=== PATIENT | male | born 1995 | race Caucasian/White ===

== ENCOUNTER 2018-05-12 23:41 | Emergency (ER) | payer MEDICAID ==
[~2018-05-12] VITALS: Ht 175.3 cm; Wt 88.6 kg
[2018-05-13] MEDS ORDERED: SODIUM CHLORIDE 0.9% 1,000 ML IV ONE (00:15)
[2018-05-13] MEDS ORDERED: EPINEPHrine 1:1,000 [1 MG/ML] AMP SQ ONE (00:15)
[2018-05-13] MEDS ORDERED: FAMOTIDINE 10 MG/ML 2 ML VIAL IVP ONE (00:15)
[2018-05-13] MEDS ORDERED: ALBUTEROL SULFATE 2.5 MG/0.5 ML NEB SOLUTION NEB ONE (00:15)
[2018-05-13] MEDS ORDERED: DiphenhydrAMINE HCL 50 MG/ML VIAL IVP ONE (00:15)
[2018-05-13] MEDS ORDERED: MethylPREDNISolone SOD SUCC 125 MG/2 ML VIAL IVP ONE (00:15)
[2018-05-13] MEDS ORDERED: 0.9% SODIUM CHLORIDE 5 ML NEB SOLUTION NEB ONE (00:16)
[2018-05-13 01:40] VITALS: BP 122/84
== END 2018-05-13 01:55 | disposition home or self-care (01) ==
LOC: EMS 23:41
DX: T78.40XA Allergy, unspecified, initial encounter (principal); R06.2 Wheezing; H57.89 Other specified disorders of eye and adnexa; X58.XXXA Exposure to other specified factors, initial encounter
CPT/HCPCS: 94640; 96372; 96374; 96375; 99283; J0171; J1200; J2930; J3490; J7030

== ENCOUNTER 2023-08-27 21:03 | Emergency (ER) | payer OTHER ==
[~2023-08-27] VITALS: Ht 180.3 cm; Wt 101.8 kg
[2023-08-27 21:21] VITALS: BP 108/47; PULSE 75; RESP 16; TEMP 98
[2023-08-28] MEDS ORDERED: METH-812 PO (01:12)
[2023-08-28] MEDS ORDERED: IBUP-1493 PO (01:12)
[2023-08-28] MEDS: METHOCARBAMOL 500 MG TABLET PO ONE (01:15)
[2023-08-28] MEDS ORDERED: KETOROLAC TROMETHAMINE 30 MG/ML VIAL IM ONE (01:15)
[2023-08-28] MEDS: KETOROLAC TROMETHAMINE 60 MG/2 ML VIAL IM ONE (01:16)
== END 2023-08-28 01:29 | disposition home or self-care (01) ==
LOC: EMS 21:03
DX: M54.50 Low back pain, unspecified (principal)
CPT/HCPCS: 99283; 96372; J1885